=== PATIENT | female | born 1985 | race Two or more races ===

== ENCOUNTER 2022-06-20 16:13 | Inpatient (IN) | payer OTHER ==
[~2022-06-20] VITALS: Ht 165.1 cm; Wt 64.4 kg
--- NOTE | 2022-06-20 17:06 | NUR ---
SE RECIBE FEMINA ALERTA Y ORIENTADA X3 QUIEN REFIERE DOLOR ABDOMINAL Y NAUSEAS. PTE VERBALIZA QUE RECIENTEMENTE FUE DX CON COLITIS. SE UBICA EN PASILLO PEND A EVALUACION MEDICA.
--- NOTE | 2022-06-20 18:10 | NUR ---
PTE FEMENINA EVALUADA POR . SE ORIENTA SOBRE ORDENES DE [place] REFIERE COMPRENDER. SE COLECTAN MUESTRAS DE LABORATORIOS Y SE CANALIZA VENA, BAJO MEDIDAS ASEPTICAS. SE ADMINISTRAN MEDICAMENTOS, BAJO MEDIDAS ASEPTICAS.
--- NOTE | 2022-06-20 23:42 | NUR ---
PTE ALERTA Y ORIENTADA X3 EN NADEEM CON BARANDAS ELEVADAS. PTE CANALIZADA AREA PAOLA DE EDEMA Y DE ENROJECIMIENTO. SE LE MARIAH CONTRASTE PO PARA ORDEN DE CT SE EDUCA DE TRATAMIENTO MEDICO.
--- NOTE | 2022-06-21 04:23 | NUR ---
SE NOTIFNGUYEN LAU SONOGRAMA ABDOMINAL.
--- NOTE | 2022-06-21 08:00 | NUR ---
SE RECIBE FEMINA ALERTA Y ORIENTADA POR KIMI ESFERAS, EN [place]ADE[place] CON BARANDAS ELEVADAS Y SEGURAS. AREA DE VENOPUNCION PAOLA DE EDEMA O ENROJECIMIENTO. PENDIENTE CONSULTA DE DR. TOBIN.
--- NOTE | 2022-06-21 15:07 | NUR ---
PTE ALERTA Y ORIENTADA X 3 ESFERAS,EN NADE[place] CON BARANDAS ELEVADAS,EN COMPANIA DE FAMILIAR,AREA DE VENOPUNCION PATENTE Y PAOLA DE EDEMA CON FLUIDOS DE MANTENIMIENTO,PENDIENTE A EVALUACION DE DR TOBIN,NO REFIERE DOLOR AL MOMENTO.
== END 2022-06-23 13:49 | disposition home or self-care (01) | DRG 392 ==
LOC: ER 16:13 → MEDI 06-21 17:29 → MEDJ 06-21 17:29 → MEDI 06-22 09:25
PROVIDERS: ADMIT Internal Medicine; ATTEND Internal Medicine
PROC: BW40ZZZ Ultrasonography of Abdomen (ICD-10-PCS; principal; 2022-06-21)
PROC: BW21ZZZ Computerized Tomography (CT Scan) of Abdomen and Pelvis (ICD-10-PCS; 2022-06-21)
PROC: BF37ZZZ Magnetic Resonance Imaging (MRI) of Pancreas (ICD-10-PCS; 2022-06-21)
DX: K29.70 Gastritis, unspecified, without bleeding (principal); Z20.822 Contact with and (suspected) exposure to COVID-19; D72.0 Genetic anomalies of leukocytes

== ENCOUNTER 2024-11-27 09:19 | Outpatient (CLI) | payer OTHER | END 2024-11-27 09:20 | disposition home or self-care (01) | LOC: NUCLEAR 09:19 | PROVIDERS: ATTEND Internal Medicine Gastroenterology | DX: N39.41 Urge incontinence (principal) ==

== ENCOUNTER 2025-01-23 11:20 | Outpatient (CLI) | payer OTHER | END 2025-01-23 11:28 | disposition home or self-care (01) | LOC: SONOGRAMA 11:20 | PROVIDERS: ATTEND Obstetrics & Gynecology | DX: R10.2 Pelvic and perineal pain (principal) ==